=== PATIENT | female | born 1940 | race Caucasian/White ===

== ENCOUNTER 2018-06-26 11:15 | Emergency (ER) | payer MEDICARE, MEDICAID ==
[2018-06-26 11:21] VITALS: RESP 18; TEMP 97.6
--- NOTE | 2018-06-26 12:16 | RAD ---
Date of service: 06/26/2018 PROCEDURE: Bilateral Knee Radiographs. HISTORY: trauma COMPARISON: None. FINDINGS: BONES: Right Knee: Minimally displaced fracture of the inferior pole of the right patella. No other fracture identified. Left Knee: Normal. No fracture. JOINTS: Right Knee: Mild medial osteoarthritis. Lateral and patellofemoral compartments are preserved. No articular erosion. Left knee: Mild medial osteoarthritis. Lateral and patellofemoral compartments are preserved. No articular erosion. SOFT TISSUES: Right Knee: Normal. Left Knee: Normal. JOINT EFFUSION: Right Knee: None. Left Knee: None. OTHER FINDINGS: None. IMPRESSION: Mildly displaced fracture of the inferior pole of the right patella. No evidence of associated hemarthrosis. Mild medial osteoarthritis bilaterally.
--- NOTE | 2018-06-26 12:17 | RAD ---
PROCEDURE: Right Hand Radiographs. HISTORY: trauma COMPARISON: None. FINDINGS: BONES: Nondisplaced transverse fracture through the base of the 5th proximal phalanx. No definite intra-articular extension. No other fracture identified. JOINTS: Normal. No osteoarthritic changes. SOFT TISSUES: Normal. OTHER FINDINGS: None. IMPRESSION: Nondisplaced transverse fracture through the base of the 5th proximal phalanx.
--- NOTE | 2018-06-26 12:35 | C.PDOC ---
History Of Present Illness 78 y/o female brought to ER by BLS for evaluation of head injury which occurred today. Patient states that she tripped and fell on the sidewalk, injuring her face and both knees on the ground. Denies having headache, dizziness, LOC,CP, SOB, nausea, and vomiting. - HPI Time Seen by Provider: 06/26/18 11:18 Chief Complaint (Nursing): Trauma History Per: Patient History/Exam Limitations: no limitations Onset/Duration Of Symptoms: Hrs Severity: Moderate Pain Scale Rating Of: 4 Recent travel outside of the [place]: No Additional History Per: Family - Fall Fall:Prior To Injury: Tripped Past Medical History Reviewed: Historical Data, Nursing Documentation, Vital Signs Vital Signs: Last Vital Signs Temp 97.6 F 06/26/18 11:21 Pulse 79 06/26/18 11:21 Resp 18 06/26/18 11:21 BP 193/79 H 06/26/18 11:21 Pulse Ox 97 06/26/18 11:21 - Medical History PMH: HTN, Hyperlipidemia Surgical History: No Surg Hx Family History: States: No Known Family Hx - Social History Hx Alcohol Use: No Hx Substance Use: No - Immunization History Hx Tetanus Toxoid Vaccination: No Hx Influenza Vaccination: No Hx Pneumococcal Vaccination: No Review Of Systems Except As Marked, All Systems Reviewed And Found Negative. Constitutional: Negative for: Weakness Eyes: Negative for: Vision Change Cardiovascular: Negative for: Chest Pain Respiratory: Negative for: Shortness of Breath Gastrointestinal: Negative for: Nausea, Vomiting Skin: Positive for: Other (head injury) Neurological: Negative for: Headache, Dizziness Physical Exam - Physical Exam Appears: Non-toxic, No Acute Distress Skin: Normal Color, Warm, Dry, Other (abrasions to bilateral knees ) Head: Normacephalic, Other (large skin tear to the left forehead) Eye(s): bilateral: Normal Inspection Nose: Normal Oral Mucosa: Moist Neck: Normal ROM, Other (cervical collar in place) Chest: Symmetrical Cardiovascular: Rhythm Regular Respiratory: Normal Breath Sounds, No Rales, No Rhonchi, No Wheezing Extremity: Normal ROM, Tenderness (tenderness to right knee), Swelling (sweling around 4th and 5th metacarpals, swelling to right knee ) Neurological/Psych: Oriented x3, Normal Speech Gait: Steady ED Course And Treatment O2 Sat by Pulse Oximetry: 97 (RA) Pulse Ox Interpretation: Normal - Other Rad X-Ray-Right Hand X-Ray: Viewed By Me, Read By Radiologist Interpretation: PROCEDURE: Right Hand Radiographs. HISTORY: trauma. COMPARI SON: None. FINDINGS: BONES: Nondisplaced transverse fracture through the base of the 5th proximal phalanx. No definite intra-articular extension. No other fracture identified. JOINTS: Normal. No osteoarthritic changes. SOFT TISSUES: Normal. OTHER FINDINGS: None. IMPRESSION: Nondisplaced transverse fracture through the base of the 5th proximal phalanx. X-Ray- Knee X-Ray: Viewed By Me, Read By Radiologist Interpretation: Date of service: 06/26/2018. PROCEDURE: Bilateral Knee Radiographs. HISTORY: trauma. COMPARISON: None. FINDINGS: BONES: Right Knee: Minimally displaced fracture of the inferior pole of the right patella. No other fracture identified. Left Knee: Normal. No fracture. JOINTS: Right Knee: Mild medial osteoarthritis. Lateral and patellofemoral compartments are preserved. No articular erosion. Left knee: Mild medial osteoarthritis. Lateral and patellofemoral compartments are preserved. No articular erosion. SOFT TISSUES: Right Knee: Normal. Left Knee: Normal. JOINT EFFUSION: Right Knee: None. Left Knee: None. OTHER FINDINGS: None. IMPRESSION: Mildly displaced fracture of the inferior pole of the right patella. No evidence of associated hemarthrosis. Mild medial osteoarthritis bilaterally. - CT Scan/US CT-Head Other Rad Studies (CT/US): Read By Radiologist, Radiology Report Reviewed CT/US Interpretation: Date of service: 06/26/2018. PROCEDURE: CT HEAD WITHOUT CONTRAST. HISTORY: R/O Bleed. COMPARISON: None available. TECHNIQUE: Axial computed tomography images were obtained through the head/brain without intravenous contrast. Radiation dose: Total exam DLP = 1095.2 mGy-cm. This CT exam was performed using one or more of the following dose reduction techniques: Automated exposure control, adjustment of the mA and/or kV according to patient size, and/or use of iterative reconstruction technique. FINDINGS: HEMORRHAGE: No intracranial hemorrhage. BRAIN: No mass effect or edema. Bilateral basal ganglia calcifications. Mild scattered white matter hypodensities, which are nonspecific, but often seen with chronic microvascular ischemic disease. Please note that MRI with diffusion imaging is more sensitive in the detection of acute ischemic event. VENTRICLES: No hydrocephalus. CALVARIUM: Unremarkable. PARANASAL SINUSES: Unremarkable as visualized. No significant inflammatory changes. MASTOID AIR CELLS: Unremarkable as visualized. No inflammatory marcelo nges. OTHER FINDINGS: Left left and right frontal scalp hematomas. IMPRESSION: No acute intracranial pathology identified. Bilateral left and right frontal scalp hematomas. CT-Cervical Spine Other Rad Studies (CT/US): Read By Radiologist, Radiology Report Reviewed CT/US Interpretation: Date of service: 06/26/2018. PROCEDURE: CT Cervical Spine without contrast. HISTORY: neck pain. COMPARISON: None available. TECHNIQUE: Axial computed tomography images were obtained of the cervical spine without the use of intravenous contrast. Coronal and sagittal reformatted images were created and reviewed. Radiation dose: Total exam DLP = 458.34 mGy-cm. This CT exam was performed using one or more of the following dose reduction dez hniques: Automated exposure control, adjustment of the mA and/or kV according to patient size, and/or use of iterative reconstruction technique. FINDINGS: VERTEBRAE: There is normal alignment of the cervical vertebral bodies. There is loss of normal cervical lordosis. Vertebral height is normal. Bone mineralization is normal. There is no acute fracture or traumatic anterior listhesis. The craniocervical junction is normal. The atlantoaxial joint normal. DISCS/SPINAL CANAL/NEURAL FORAMINA: There is multilevel degenerative disc disease due to combination of disc osteophyte complexes, uncovertebral joint hypertrophy and multilevel facet arthropathy, worse at C6-7 with a diffuse posterior disc bulge, mild spinal canal stenosis, and severe right neural foraminal narrowing. PARASPINAL SOFT TISSUES: Paraspinous soft tissues are normal. No prevertebral soft tissue thickening. OTHER FINDINGS: None. IMPRESSION: No acute fracture or traumatic anterior listhesis. Multilevel degenerative disc disease, worse at C 5 6 with diffuse posterior disc bulge, severe right neural foraminal narrowing and mild spinal canal stenosis. Straightening of the cervical spine may be positional or related to muscle spasm. Progress Note: Case discussed with ortho PA who placed splint on right hand and knee and spoke with orthopedic inclusion specialist Dr Westfall who agrees with discharge and follow up as outpatient. Abrasions cleaned Reassessment Condition: Improved - Physician Consult Information Physician Contacted: Rosa Westfall Outcome Of Conversation: discharge Medical Decision Making Medical Decision Making: Plan: --CT-Head --CT-Cervical Spine --X-Ray-Right Hand --[id number] Knee --Tylenol PO Disposition Discussed With Dr.: Rosa Westfall Doctor Will See Patient In The: Office Counseled Patient/Family Regarding: Studies Performed, Diagnosis, Need For Followup - Disposition Referrals: Rosa Westfall MD [Staff Provider] - Disposition: HOME/ ROUTINE Disposition Time: 13:20 Condition: STABLE Additional Instructions: Follow up with orthopedic Tylenol as needed for pain Prescriptions: Aspirin 325 mg PO BID #60 tab Instructions: Patella Fracture, Closed Head Injury, Contusion (DC) Forms: [employer] (Finnish) - POA Present On Arrival: None - Clinical Impression Clinical Impression: Patella fracture, Head injury due to trauma, Contusion - PA / TUBE CLEANING OPERATOR / Resident Statement MD/DO has reviewed & agrees with the documentation as recorded. - Scribe Statement The provider has reviewed the documentation as recorded by the Scribe Jens Cabrera Provider Attestation All medical record entries made by the Scribe were at my direction and personally dictated by me. I have reviewed the chart and agree that the record accurately reflects my personal performance of the history, physical exam, medical decision making, and the department course for this patient. I have also personally directed, reviewed, and agree with the discharge instructions and disposition.
--- NOTE | 2018-06-26 12:49 | CT ---
Date of service: 06/26/2018 PROCEDURE: CT Cervical Spine without contrast HISTORY: neck pain COMPARISON: None available. TECHNIQUE: Axial computed tomography images were obtained of the cervical spine without the use of intravenous contrast. Coronal and sagittal reformatted images were created and reviewed. Radiation dose: Total exam DLP = 458.34 mGy-cm. This CT exam was performed using one or more of the following dose reduction techniques: Automated exposure control, adjustment of the mA and/or kV according to patient size, and/or use of iterative reconstruction technique. FINDINGS: VERTEBRAE: There is normal alignment of the cervical vertebral bodies. There is loss of normal cervical lordosis. Vertebral height is normal. Bone mineralization is normal. There is no acute fracture or traumatic anterior listhesis. The craniocervical junction is normal. The atlantoaxial joint normal. DISCS/SPINAL CANAL/NEURAL FORAMINA: There is multilevel degenerative disc disease due to combination of disc osteophyte complexes, uncovertebral joint hypertrophy and multilevel facet arthropathy, worse at C6-7 with a diffuse posterior disc bulge, mild spinal canal stenosis, and severe right neural foraminal narrowing. PARASPINAL SOFT TISSUES: Paraspinous soft tissues are normal. No prevertebral soft tissue thickening. OTHER FINDINGS: None. IMPRESSION: No acute fracture or traumatic anterior listhesis. Multilevel degenerative disc disease, worse at C 5 6 with diffuse posterior disc bulge, severe right neural foraminal narrowing and mild spinal canal stenosis. Straightening of the cervical spine may be positional or related to muscle spasm.
[2018-06-26 13:11] VITALS: BP 175/82; PULSE 83
[2018-06-26 13:13] VITALS: O2SAT 97
--- NOTE | 2018-06-26 13:13 | CP.PCM.CON ---
History of Present Illness - History of Present Illness History of Present Illness: Orthopedic consultation Dr. Westfall 78F was walking with daughter down the street when she tripped and fell. Complains of right hand pain, right knee pain at this time. She also hit her head during the fall. Denies LOC. Denies pain in other extremities. She tried to get up and walk after fall, but was unable. She denies numbness and tingling. Denies CP/SOB, had some dizziness after trying to get up. Denies n/v. Complaining of pain in front of head where she bumped it. PMH: HTN, chol, arthritis takes aspirin 81mg Review of Systems - Review of Systems All systems: reviewed and no additional remarkable complaints except - Constitutional Additional comments: no fevers/chills - Cardiovascular Cardiovascular: As Per HPI - Respiratory Respiratory: As Per HPI - Musculoskeletal Musculoskeletal: As Per HPI - Integumentary Additional comments: abrasion to head - Neurological Neurological: As Per HPI - Hematologic/Lymphatic Hematologic: absent: As Per HPI, Easy Bleeding, Easy Bruising, Lymphadenopathy, Other (no history of DVT) Past Patient History - Past Medical History & Family History Past Medical History?: Yes Past Family History: Reviewed and not pertinent - Past Social History Smoking Status: Never Smoked - CARDIAC Hx Hypertension: Yes - PSYCHIATRIC Hx Substance Use: No Meds Home Medications: Home Medication List Medication Instructions Recorded Confirmed Type Aspirin 325 mg PO BID #60 tab 06/26/18 Rx Allergies/Adverse Reactions: Allergies Allergy/AdvReac Type Severity Reaction Status Date / Time Penicillins Allergy Verified 06/26/18 11:21 Physical Exam - Constitutional Appears: Well, No Acute Distress - Head Exam Additional comments: large hematoma to left side of forehead with abrasion - Neck Exam Additional comments: in c collar - Respiratory Exam Respiratory Exam: NORMAL BREATHING PATTERN - Cardiovascular Exam Additional comments: +radial pulses +DP/PT pulses - Expanded Upper Extremities Exam Right Forearm Wrist exam: swelling (+ROM fingers, sensation intact) Neuro motor exam: finger 2-5 abduction intact, thumb abduction, thumb IP flexion intact, thumb opposition intact, wrist extension intact Neurosensory exam: median nerve intact, radial nerve intact, ulnar nerve intact Vascular exam: radial pulse - Expanded Lower Extremities Exam Right Knee exam: ecchymosis (able to maintain knee ext and complete SLR without lag, no laxity to varus/valgus/meera, TTP anterior knee), swelling, tenderness - Neurological Exam Neurological exam: Alert, Oriented x3 - Psychiatric Exam Psychiatric exam: Normal Affect, Normal Mood - Skin Skin Exam: Dry, Intact, Normal Color, Warm Additional comments: to right hand and right leg mild swelling to base of right small finger mild ecchymosis to right anterior knee Results - Vital Signs Recent Vital Signs: Last Vital Signs Temp 97.6 F 06/26/18 11:21 Pulse 79 06/26/18 11:21 Resp 18 06/26/18 11:21 BP 193/79 H 06/26/18 11:21 Pulse Ox 97 06/26/18 12:57 - Impressions Impression: atient Name / ID : CIPRIANO MARQUEZ / [id number] Exam Date : 06/26/2018 11:45:02 ( Approved ) Study Comment : Sex / Age : F 78Y Creator : Jose Manuel Mclean MD Dictator : Jose Manuel Mclean MD Building Equipment Operator : Traffic Inspector : Jose Manuel Mclean MD Approver2 : Report Date : 06/26/2018 12:13:58 My Comment : PROCEDURE: Right Hand Radiographs. HISTORY: trauma COMPARISON: None. FINDINGS: BONES: Nondisplaced transverse fracture through the base of the 5th proximal phalanx. No definite intra-articular extension. No other fracture identified. JOINTS: Normal. No osteoarthritic changes. SOFT TISSUES: Normal. OTHER FINDINGS: None. IMPRESSION: Nondisplaced transverse fracture through the base of the 5th proximal phalanx. Patient Name / ID : CIPRIANO MARQUEZ / [id number] Exam Date : 06/26/2018 11:45:12 ( Approved ) Study Comment : Sex / Age : F / 78Y Creator : Jose Manuel Mclean MD Dictator : Jose Manuel Mclean MD Building Equipment Operator : Traffic Inspector : Jose Manuel Mclean MD Approver2 : Report Date : 06/26/2018 12:12:45 My Comment : Date of service: 06/26/2018 PROCEDURE: Bilateral Knee Radiographs. HISTORY: trauma COMPARISON: None. FINDINGS: BONES: Right Knee: Minimally displaced fracture of the inferior pole of the right patella. No other fracture identified. Left Knee: Normal. No fracture. JOINTS: Right Knee: Mild medial osteoarthritis. Lateral and patellofemoral compartments are preserved. No articular erosion. Left knee: Mild medial osteoarthritis. Lateral and patellofemoral compartments are preserved. No articular erosion. SOFT TISSUES: Right Knee: Normal. Left Knee: Normal. JOINT EFFUSION: Right Knee: None. Left Knee: None. OTHER FINDINGS: None. IMPRESSION: Mildly displaced fracture of the inferior pole of the right patella. No evidence of associated hemarthrosis. Mild medial osteoarthritis bilaterally. Assessment & Plan (1) Closed fracture of right patella Assessment and Plan: mildly displaced able to complete SLR imaging reviewed with Dr. Westfall non operative knee immobilizer at all times x 6 weeks, do no remove, do not flex knee or may require surgery patient and daughter instructed of above, verbalized understanding WBAT RLE with walker and in knee immobilizer patient instructed to stop baby aspirin at this time and hold naproxen and take aspirin 325 PO BID for VTE proph tylenol prn pain d/w Dr. Westfall, agrees with above ortho stable for d/c home and f/u 7-10 days in office call for appt Status: Acute (2) Fracture of proximal phalanx of right little finger Assessment and Plan: mildly displaced, no obvious rotation ulnar gutter splint keep intact and dry elevate f/u Dr. Westfall as above Status: Acute Procedures Attestation:: I certify that I have explained the specified Operation(s) or Procedure(s), risks, benefits and reasonable alternatives to the Patient and/or other person responsible. The opportunity was given to ask questions and all questions answered - Orthopedic Splinting/Casting Injury #1 Side: right Upper Extremity Injury Location: finger Upper Extremity Immobilizer: ulnar gutter Additional comments: well padded ulnar gutter intrinsic plus position applied to right hand pt tolerated well, NVID pre and post splint application
[2018-06-26] MEDS ORDERED: Bacitracin 500 Units/gm Oint Foilpak UD ONE (13:27)
== END 2018-06-26 13:42 | disposition home or self-care (01) ==
LOC: C.ER 11:15
DX: S62.646A Nondisplaced fracture of proximal phalanx of right little finger, initial encounter for closed fracture (principal); S82.091A Other fracture of right patella, initial encounter for closed fracture; S00.83XA Contusion of other part of head, initial encounter; W01.0XXA Fall on same level from slipping, tripping and stumbling without subsequent striking against object, initial encounter; Y93.01 Activity, walking, marching and hiking; Y92.410 Unspecified street and highway as the place of occurrence of the external cause